=== PATIENT | female | born 1980 | race Hispanic/Latino ===

== ENCOUNTER → 2016-07-04 | Outpatient (CLI) | payer OTHER ==
--- NOTE | 2016-07-04 15:24 | REP ---
FIRST TRIMESTER TWIN ULTRASOUND: First trimester ultrasound performed utilizing transabdominal and endovaginal technique. There is a living diamniotic dichorionic twin gestation. There is concordant growth of both twins. There is no subchorionic hemorrhage. Cystic structure of the right ovary may represent a corpus luteum measuring approximately 1.9 cm in diameter. There is no torsion of either ovary. Fetus A: Garden rump length 12 mm equals 7 weeks 3 days. heart rate 131 beats per minute. Fetus B: Garden rump length 10 mm equals 7 weeks 0 days. heart rate 131 beats per minute. Signed by Jonathon Cesar MD 07/04/2016 04:46 P
== END | disposition home or self-care (01) ==
LOC: M RAD 13:35
PROVIDERS: ATTEND Student in an Organized Health Care Education/Training Program
DX: O30.041 Twin pregnancy, dichorionic/diamniotic, first trimester (principal); Z36 Encounter for antenatal screening of mother; Z3A.01 Less than 8 weeks gestation of pregnancy

== ENCOUNTER 2016-12-29 18:56 | Outpatient (CLI) | payer OTHER ==
[~2016-12-29] VITALS: Ht 154.9 cm; Wt 88.0 kg
[2016-12-29] VITALS (8 sets, daily range): BP systolic 135–155; BP diastolic 66–95
[2016-12-29] MEDS ORDERED: PRE-TAB3 PO (19:32)
[2016-12-29] MEDS ORDERED: LR 1,000 ML IV SCH ×2 (20:45→20:46)
[2016-12-29] MEDS ORDERED: NIFEdipine 10 MG CAP PO ONE (21:15)
[2016-12-29] MEDS: BETAMETHASONE SOLUSPAN 6MG/ML INJ 5ML (J0702) IM SCH (21:23)
[2016-12-29 21:24] LABS: ALBUMIN 2.7 GM/DL (3.2-5.2); ALBUMIN/GLOBULIN RATIO 0.63 (1.00-1.93); ALKALINE PHOSPHATASE 161 U/L (45-117); ALT/SGPT 71 U/L (12-78); ANION GAP 12 MEQ/L (8-16); AST/SGOT 68 U/L (15-37); BILIRUBIN,TOTAL 0.4 MG/DL (0.2-1.0); BLOOD UREA NITROGEN 8 MG/DL (7-18); CALCIUM LEVEL 8.7 MG/DL (8.5-10.1); CARBON DIOXIDE LEVEL 21 MEQ/L (21-32); CHLORIDE LEVEL 105 MEQ/L (98-107); GLOMERULAR FILTRATION RATE > 60.0 (>60); GLUCOSE, FASTING 76 MG/DL (70-105); POTASSIUM SERUM 3.7 MEQ/L (3.5-5.1); SODIUM LEVEL 138 MEQ/L (136-145)
[2016-12-29] MEDS ORDERED: MORPHINE 2 MG/ML 1ML SYRINGE IV PRN (21:45)
[2016-12-29] MEDS ORDERED: ACETAMINOPHEN 500 MG TAB PO PRN (21:45)
[2016-12-29 22:13] LABS: MEAN CORPUSCULAR HEMOGLOBIN 30.1 pg (27.0-33.0); MEAN CORPUSCULAR HGB CONC 34.6 g/dl (32.0-36.5); MEAN CORPUSCULAR VOLUME 87.1 fl (80.0-96.0); RED CELL DISTRIBUTION WIDTH 13.4 % (11.5-14.5); WHITE BLOOD COUNT 9.1 K/mm3 (4.0-10.0)
[2016-12-29] MEDS ORDERED: ONDANSETRON 4MG/2ML VIAL (J2405) IV PRN (22:30)
[2016-12-30] VITALS (14 sets, daily range): BP systolic 113–141; BP diastolic 59–91
[2016-12-30] MEDS: NIFEdipine 10 MG CAP PO SCH ×4 (02:36→20:58)
[2016-12-30 19:29] LABS: MEAN CORPUSCULAR HEMOGLOBIN 30.6 pg (27.0-33.0); MEAN CORPUSCULAR HGB CONC 34.8 g/dl (32.0-36.5); MEAN CORPUSCULAR VOLUME 87.9 fl (80.0-96.0); RED CELL DISTRIBUTION WIDTH 13.5 % (11.5-14.5)
[2016-12-30 19:48] LABS: ANION GAP 13 MEQ/L (8-16); BLOOD UREA NITROGEN 12 MG/DL (7-18); CALCIUM LEVEL 8.3 MG/DL (8.5-10.1); CARBON DIOXIDE LEVEL 21 MEQ/L (21-32); CHLORIDE LEVEL 107 MEQ/L (98-107); CREATININE FOR GFR 0.82 MG/DL (0.55-1.02); GLOMERULAR FILTRATION RATE > 60.0 (>60); GLUCOSE, FASTING 100 MG/DL (70-105); POTASSIUM SERUM 3.7 MEQ/L (3.5-5.1); SODIUM LEVEL 141 MEQ/L (136-145)
[2016-12-30] MEDS: BETAMETHASONE SOLUSPAN 6MG/ML INJ 5ML (J0702) IM SCH (20:59)
--- NOTE | 2017-01-01 08:23 | DSES ---
DATE OF ADMISSION: 12/29/2016 DATE OF DISCHARGE: 12/30/2016 This is 36-year-old 4, para 2 at 32 +5 weeks of gestation, diamniotic dichorionic twins comes with contractions, abdominal discomfort. No loss of fluid or vaginal bleeding. On examination she has a gravid uterus. Bowel sounds are present. She has a reactive strip for twin A and twin B with moderate variability and accelerations. Her cervix was one thick and high. fibronectin (FFN) was positive. She was monitored and she has had a history of two previous sections and our goal was to stop her contractions, make her steroid complete, and possible discharge. She received nifedipine and Tylenol and morphine. She completely shut down her contractions. She was examined twice in 24 hours and found to basically have no change in her cervix. On discharge, she had a reactive strip times two, basically was unchanged as far as her cervix goes, there was a bit of mucousy show, first twin A was vertex, twin B was also at that time vertex. Her lab work indicated her hemoglobin was 13.8, hematocrit 39.9 and platelets were 132. Her chemistry indicated that she had a normal kidney function, normal electrolytes. Her urine was showed 11, pH of 5. She had some bacteria, growth is pending. Her vital signs throughout were normal. Her discharge blood pressure was 129/75, respirations were 18, pulse 83 and temperature is 99.1. She was given precautions regarding intercourse, lifting, and physical activity. The rest of the examination at discharge was unremarkable. She had a category 1 strip times two. She was normocephalic, atraumatic. Neck: Full range of motion. Pupils equal and reactive to light. Reflexes were normal upper and lower, no evidence of pedal edema. No right upper quadrant pain. No visual disturbances. Distal pulses were symmetric. Chest was clear bilaterally to bases. No CVA tenderness. Symphysis fundus height was appropriate for twins. Four quadrant bowel sounds were noted. She no rashes, lesions or pruritus. No arthralgia, myalgia. No complaints of cough, wheeze, shortness of breath or dyspnea on exertion. She was not bleeding. She did not have chest pains. She is neuro complete. No incontinency or frequency. No nausea, vomiting, diarrhea or constipation. No diabetic issues. Gyne history unremarkable. PAST SURGICAL HISTORY: times two. FAMILY HISTORY: Noncontributory. She does not smoke or drink or abuse drugs. She is . There is no domestic violence and she has good support. Urine culture was pending on discharge and we counseled her regarding increasing fluids, pelvic rest, monitor contractions, if premature rupture of membranes, bleeding or contractions to return immediately. Her plan of care is to repeat section with Dr. Gaitan. She was discharged undelivered to followup in the office in one week's time. cc: [facility] Lynda Mcgill
== END 2016-12-30 23:30 | disposition home or self-care (01) ==
LOC: M LDO 18:56
PROVIDERS: ATTEND Student in an Organized Health Care Education/Training Program
DX: O60.03 Preterm labor without delivery, third trimester (principal); O30.043 Twin pregnancy, dichorionic/diamniotic, third trimester; Z3A.32 32 weeks gestation of pregnancy
CPT/HCPCS: 36415; 59025; 80048; 80053; 81001; 82570; 82731; 84156; 85027; 87086; 96372; 96374; J0702; J2405

== ENCOUNTER 2016-12-31 21:31 | Inpatient (IN) | payer OTHER ==
[~2016-12-31 21:31] MED LIST: PRE-TAB3 PO
[2016-12-31 21:42] VITALS: BP 154/82
[2016-12-31 22:05] LABS: MEAN CORPUSCULAR HEMOGLOBIN 30.5 pg (27.0-33.0); MEAN CORPUSCULAR HGB CONC 35.1 g/dl (32.0-36.5); MEAN CORPUSCULAR VOLUME 86.7 fl (80.0-96.0); RED CELL DISTRIBUTION WIDTH 13.6 % (11.5-14.5); WHITE BLOOD COUNT 14.2 K/mm3 (4.0-10.0)
[2016-12-31 22:36] LABS: ALBUMIN 2.6 GM/DL (3.2-5.2); ALBUMIN/GLOBULIN RATIO 0.76 (1.00-1.93); ALKALINE PHOSPHATASE 140 U/L (45-117); ALT/SGPT 51 U/L (12-78); AMYLASE 30 U/L (25-115); ANION GAP 13 MEQ/L (8-16); AST/SGOT 38 U/L (15-37); BILIRUBIN,TOTAL 0.4 MG/DL (0.2-1.0); BLOOD UREA NITROGEN 16 MG/DL (7-18); CALCIUM LEVEL 8.1 MG/DL (8.5-10.1); CARBON DIOXIDE LEVEL 22 MEQ/L (21-32); CHLORIDE LEVEL 107 MEQ/L (98-107); GLOMERULAR FILTRATION RATE > 60.0 (>60); GLUCOSE, FASTING 97 MG/DL (70-105); POTASSIUM SERUM 3.4 MEQ/L (3.5-5.1); SODIUM LEVEL 142 MEQ/L (136-145)
[2016-12-31 23:36] LABS: URIC ACID 9.9 MG/DL (2.6-6.0)
[2017-01-01] VITALS (10 sets, daily range): BP systolic 121–146; BP diastolic 67–83
--- NOTE | 2017-01-01 00:20 | REPUSA ---
CLINICAL HISTORY: Dysuria. TECHNIQUE: Realtime sonographic images were obtained in multiple projections. COMMENTS: The right kidney measures 12x6.7x6.6 cm and the left kidney measures 11.1x6.3x6.4 cm. Both kidneys de monstrates mild bilateral hydronephrosis. Mildly dilated proximal right ureter measuring 6.9 mm. Ther e is no evidence of solid or cystic mass. There is no perinephric fluid. There is no renal calculus. The bladder is underdistended and not well-visualized. Twin gestation. heart rate 153 and 133 beats per minute. IMPRESSION: Underdistended bladder. Mild bilateral hydronephrosis. Mildly dilated proximal right ureter. Thank you for your kind referral of this patient.
[2017-01-01] MEDS ORDERED: cefTRIAXone SOD 1 GM in D5W MINI-BAG PLUS 50 ML IV ONE (00:45)
[2017-01-01] MEDS ORDERED: LR 1,000 ML IV SCH (00:45)
[2017-01-01] MEDS ORDERED: ACETAMINOPHEN 500 MG TAB PO PRN (00:45)
[2017-01-01] MEDS ORDERED: LACTATED RINGER'S 1000 ML IV STA (03:34)
[2017-01-01] MEDS ORDERED: BICITRA 30ML SOLN UDC PO ONE (03:45)
[2017-01-01] MEDS ORDERED: MORPHINE PRES-FREE INJ 10 MG/10 ML VIAL (J2274) As Ordered ONE (04:24)
[2017-01-01] MEDS ORDERED: OXYTOCIN INJ 10 UNITS/ML VIAL (J2590) As Ordered ONE ×2 (04:25→04:26)
[2017-01-01] MEDS ORDERED: dexameTHASONE 4 MG/ML 1ML VIAL (J1100) As Ordered ONE (04:28)
[2017-01-01] MEDS ORDERED: ONDANSETRON 4MG/2ML VIAL (J2405) As Ordered ONE (04:29)
[2017-01-01] MEDS ORDERED: NALBUPHINE HCL 10 MG/ML AMP (J2300) IV PRN ×4 (04:30→10:30)
[2017-01-01] MEDS ORDERED: NALOXONE INJ 0.4 MG/1 ML VIAL (J2310) IV PRN ×4 (04:30→04:50)
[2017-01-01] MEDS ORDERED: ONDANSETRON 4MG/2ML VIAL (J2405) IV PRN ×5 (04:30→10:30)
[2017-01-01] MEDS ORDERED: METOCLOPRAMIDE INJ 10MG/2ML VIAL (J2765) IV PRN ×2 (04:30→04:50)
[2017-01-01] MEDS ORDERED: PHENYLephrine HCL 500 MCG/5 ML (100MCG/ML) SYRINGE (J2370) As Ordered ONE (05:14)
[2017-01-01] MEDS ORDERED: fentaNYL 100 MCG/2 ML INJECTION (J3010) IV PRN ×2 (07:15→10:30)
[2017-01-01] MEDS ORDERED: PERCOCET 5MG/325MG TAB PO PRN ×3 (07:15→10:30)
[2017-01-01] MEDS ORDERED: PROMETHAZINE 25 MG TAB PO PRN (08:30)
[2017-01-01] MEDS ORDERED: RHOGAM 300 MCG (1500 IU) INJ (J2790) IM SCH (08:30)
[2017-01-01] MEDS ORDERED: MEASLES,MUMPS,RUBELLA VACCINE INJ (MMR-II) (90707) SC SCH (08:30)
[2017-01-01] MEDS ORDERED: METHYLERGONOVINE MALEATE 0.2 MG/ML VIAL (J2210) IM PRN (08:30)
[2017-01-01] MEDS: DOCUSATE SODIUM 100 MG CAP PO SCH ×2 (09:00→20:52)
[2017-01-01] MEDS: PRENATAL VITAMINS CHEWABLE TABLET PO SCH (09:00)
[2017-01-01] MEDS: LR 1,000 ML IV SCH ×2 (13:05→20:52)
[2017-01-02] MEDS: PERCOCET 5MG/325MG TAB PO PRN ×2 (00:07→08:10)
[2017-01-02] MEDS: cefTRIAXone SOD 1 GM in D5W MINI-BAG PLUS 50 ML IV SCH (01:26)
[2017-01-02 02:04] VITALS: BP 132/73
[2017-01-02 06:00] VITALS: BP 144/98
[2017-01-02] MEDS: PRENATAL VITAMINS CHEWABLE TABLET PO SCH (08:09)
[2017-01-02] MEDS: DOCUSATE SODIUM 100 MG CAP PO SCH ×2 (08:09→23:16)
[2017-01-02 08:21] LABS: MEAN CORPUSCULAR HEMOGLOBIN 30.4 pg (27.0-33.0); MEAN CORPUSCULAR VOLUME 86.8 fl (80.0-96.0); RED CELL DISTRIBUTION WIDTH 13.4 % (11.5-14.5); WHITE BLOOD COUNT 8.5 K/mm3 (4.0-10.0)
[2017-01-02 10:00] VITALS: BP 135/76
[2017-01-02] MEDS ORDERED: BACITRACIN OINT 30GM TOP PRN (13:30)
[2017-01-02] MEDS ORDERED: ANUSOL HC CREAM 30GM TOP PRN (13:30)
[2017-01-02 14:23] VITALS: BP 136/97
[2017-01-02 18:00] VITALS: BP 147/91
[2017-01-02] MEDS ORDERED: ANUSOL HC CREAM 30GM TOP SCH (21:00)
[2017-01-02 23:32] VITALS: BP 154/98
[2017-01-03] MEDS: PERCOCET 5MG/325MG TAB PO PRN (00:55)
[2017-01-03] MEDS: cefTRIAXone SOD 1 GM in D5W MINI-BAG PLUS 50 ML IV SCH (00:55)
[2017-01-03 06:06] VITALS: BP 152/92
[2017-01-03] MEDS: DOCUSATE SODIUM 100 MG CAP PO SCH (09:31)
[2017-01-03] MEDS: PRENATAL VITAMINS CHEWABLE TABLET PO SCH (09:32)
[2017-01-03] MEDS ORDERED: COLA100C5 PO (11:02)
[2017-01-03] MEDS ORDERED: OXYC1TAB23 PO (11:02)
--- NOTE | 2017-01-03 13:25 | DSES ---
DATE OF ADMISSION: 01/01/2017 DATE OF DISCHARGE: This lady is a 36-year-old, 4, now para 3 who was admitted at 33 and 1 weeks of gestation in active labor with di-di twins, vertex, vertex. She had an elective repeat section and delivered a live male infant weighing 4 pounds 8 ounces, vertex, Apgars of eight and nine at 1 and 5 minutes respectively, Twin A. Twin B is vertex, male, 4 pounds 8 ounces, Apgars of eight and nine at 1 and 5 minutes respectively. Risk factors is she had labor at 33 and 1 weeks, di-di twins, previous section times two, and was in active labor now. On discharge, hemoglobin was 12.7, hematocrit 36.1 and platelets 127. Her vital sounds were blood pressure 144/98, respirations 18, pulse 75 and temperature 98.3. We discussed phlebitis, cystitis, mastitis, endometritis, cellulitis; diet, exercise and pain management; perineal, breast and wound care. She will be dispensed her medications on discharge. She is to have a 2-week incision check and a 6-week check. The rest of the examination is unremarkable. She is normocephalic, atraumatic. Neck full range of motion. Pupils equal and reactive to light. Thyroid is normal. No jugular venous distention (JVD) or bruits. Lungs are clear bilaterally to bases. Heart sounds are normal. No murmurs, rubs or clicks. Chest is clear to the bases. No wheezes or rhonchi. No costovertebral angle (CVA) tenderness. Uterus two below. Lochia is moderate. Incision is clean and dry. Perineum is intact. No rashes, lesions or pruritus. No arthralgia or myalgia. No complaint of cough, wheeze, shortness breath or dyspnea on exertion. No chest pain. No bleeding. Neurologic complete. No incontinency, urgency or frequency. No nausea, vomiting, diarrhea or constipation. Does not smoke, drink, abuse drugs. There is no domestic violence. In summary, we have a 34 weeker with di-di twins, active labor, at 33 and 1 week gestation, who had an elective repeat section, to discharged and followup in two weeks' time for incision check and 6 weeks for check. Meds will be dispensed at discharge.
== END 2017-01-03 15:30 | disposition home or self-care (01) | DRG 765 ==
LOC: M LDO 21:31 → M LDI 01-01 03:35 → M OBS 01-01 07:55
PROVIDERS: ADMIT Obstetrics & Gynecology; ATTEND Obstetrics & Gynecology
PROC: 10D00Z1 Extraction of Products of Conception, Low, Open Approach (ICD-10-PCS; principal; 2017-01-01)
DX: O60.13X1 Preterm labor second trimester with preterm delivery third trimester, fetus 1 (principal); O23.43 Unspecified infection of urinary tract in pregnancy, third trimester; O30.043 Twin pregnancy, dichorionic/diamniotic, third trimester; O60.13X2 Preterm labor second trimester with preterm delivery third trimester, fetus 2; Z3A.33 33 weeks gestation of pregnancy; O34.211 Maternal care for low transverse scar from previous cesarean delivery; Z37.2 Twins, both liveborn